=== PATIENT | male | born 1935 | race Caucasian/White ===

== ENCOUNTER → 2020-09-09 | Outpatient (CLI) | payer MEDICARE ==
--- NOTE | 2020-09-09 09:05 | KCIC ---
EXAM: Right wrist, 3 views. HISTORY: Pain. COMPARISON: None. FINDINGS: 3 views of the right wrist are obtained. There is no acute fracture. There is deformity of the distal radial metaphysis likely due to a healed fracture. 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 There is severe first carpal metacarpal aniket int space narrowing, subchondral sclerosis and spurring with chronic fragmented osteophytes. There is triscaphe joint space narrowing and subchondral sclerosis. IMPRESSION: 1. No acute osseous finding. 2. Suspected chronic fracture deformity involving the distal radial metaphysis with chronic nonunited fracture fragment. 3. Severe first carpometacarpal osteoarthritis and mild triscaphe osteoarthritis. Electronically signed by: Johana Hernandez MD (09/09/2020 9:02 AM) [id number]
--- NOTE | 2020-09-09 10:08 | KCIC ---
EXAM: Right wrist, 3 views. HISTORY: Pain. COMPARISON: None. FINDINGS: 3 views of the right wrist are obtained. There is no acute fracture. There is deformity of the distal radial metaphysis likely due to a healed fracture. 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 There is severe first carpal metacarpal joint space narrowing, subchondral sclerosis and spurring with chronic fragmented osteophytes. There is triscaphe joint space narrowing and subchondral sclerosis. IMPRESSION: 1. No acute osseous finding. 2. Suspected chronic fracture deformity involving the distal radial metaphysis with chronic nonunited fracture fragment. 3. Severe first carpometacarpal osteoarthritis and mild triscaphe osteoarthritis. MTDD
== END ==
LOC: KCIC 08:41
PROVIDERS: ATTEND Physician Assistant
DX: S52.301A Unspecified fracture of shaft of right radius, initial encounter for closed fracture (principal); M18.11 Unilateral primary osteoarthritis of first carpometacarpal joint, right hand; M25.731 Osteophyte, right wrist; L08.9 Local infection of the skin and subcutaneous tissue, unspecified; M79.89 Other specified soft tissue disorders; L03.113 Cellulitis of right upper limb; X58.XXXA Exposure to other specified factors, initial encounter; Y93.89 Activity, other specified; Y92.89 Other specified places as the place of occurrence of the external cause; Y99.8 Other external cause status
CPT/HCPCS: 73110